=== PATIENT | female | born 1960 | race African-American/Black ===

== ENCOUNTER 2023-02-09 09:37 | Inpatient (IN) | payer BC, MEDICAID ==
[2023-02-02 14:49] LABS: BILIRUBIN,URINE NEGATIVE (Neg); CLARITY,URINE SLIGHTLY CLOUDY (Clear); COLOR,URINE YELLOW (Yellow); GLUCOSE, URINE NEGATIVE (Neg); KETONES,URINE NEGATIVE (Neg); LEUKOCYTE ESTERASE ,URINE NEGATIVE (Neg); NITRITES, URINE NEGATIVE (Neg); OCCULT BLOOD,URINE NEGATIVE (Neg); PROTEIN,URINE NEGATIVE (Neg); UROBILINOGEN,URINE 0.2 E.U/dL (0.2-1.0)
[2023-02-02 14:54] LABS: BASOPHILS % (AUTO) 0.6 % (0-1); EOSINOPHILS # (AUTO) 0.2 X10'3 (0-0.9); EOSINOPHILS % (AUTO) 3.8 % (0-6); LYMPHOCYTES # (AUTO) 1.4 X10'3 (1.1-4.8); LYMPHOCYTES % (AUTO) 30.4 % (21-51); MEAN CORPUSCULAR HEMOGLOBIN 30.8 PG (27.0-31.0); MEAN CORPUSCULAR HGB CONC 33.1 g/dL (33.0-36.5); MEAN CORPUSCULAR VOLUME 93.1 FL (78-98); MEAN PLATELET VOLUME 9.4 FL (7.4-10.4); MONOCYTES # (AUTO) 0.8 X10'3 (0-0.9); MONOCYTES % (AUTO) 16.8 % (2-12); NEUTROPHILS # (AUTO) 2.2 X10'3 (1.8-7.7); NEUTROPHILS % (AUTO) 48.4 % (42-75); PRE OP HEMATOCRIT 40.9 % (35.0-45.0); PRE OP HEMOGLOBIN 13.5 g/dL (12.0-16.0); PRE OP PLATELET COUNT 264 X10'3 (140-440); PRE OP WHITE BLOOD COUNT 4.5 10'3 (4.8-10.8); RED CELL DISTRIBUTION WIDTH 15.1 % (11.5-14.5)
[2023-02-02 14:57] LABS: UA COLLECTION TYPE CLN CATCH MIDSTREAM
[2023-02-02 14:58] LABS: ALBUMIN 3.9 G/DL (3.4-5.0); BLOOD UREA NITROGEN 19 MG/DL (7-18); BUN/CREATININE RATIO 23.2 (10.0-20.0); CALCIUM 8.6 MG/DL (8.5-10.1); CHLORIDE 106 MMOL/L (99-107); CREATININE 0.82 MG/DL (0.40-0.90); MUCUS STRANDS FEW /LPF (Neg); PRE OP ALT 29 U/L (30-65); PRE OP ANION GAP 6 (8-16); PRE OP AST 23 U/L (10-37); PRE OP GLUCOSE 99 MG/DL (70-104); PRE OP SODIUM 140 MMOL/L (135-145); SQUAMOUS EPITHELIAL CELL,UR MANY /LPF (FEW); TOTAL CARBON DIOXIDE 27.7 MMOL/L (24-32); eGFR 85 ML/MIN
[2023-02-02 14:59] LABS: HYALINE CASTS 0-3 /LPF (NEGATIVE)
[2023-02-02 15:00] LABS: BACTERIA,URINE FEW /HPF (Neg); RBC,URINE 0-2 /HPF (0-2); TRANSITIONAL EPI CELLS,URINE FEW /HPF
[2023-02-02 15:13] LABS: TOTAL CELLS COUNTED 100
[2023-02-02 15:14] LABS: PLATELET ESTIMATE NORMAL
[2023-02-02 15:16] LABS: ALKALINE PHOSPHATASE 99 IU/L (46-116); PRE OP BILIRUB, TOTAL 0.3 MG/DL (0.0-1.0); TOTAL PROTEIN 7.9 G/DL (6.4-8.2)
[~2023-02-09] VITALS: Ht 167.6 cm; Wt 99.8 kg
[2023-02-09] VITALS (23 sets, daily range): BP systolic 106–164; BP diastolic 53–90; PULSE 76–100; RESP 8–20; TEMP 97.3–98.4; O2SAT 16–100
[~2023-02-09 09:37] MED LIST: CELE-193 PO; ERGO500041 PO; PHEN37.58 PO; ceFOXitin 2GM-NS 100mL ADDvant 100 ML IV ONE; famotidine 20mg tablet PO ONE; ringers solution, lacted 1,000 ML IV SCH
[2023-02-09] MEDS ORDERED: LIDOcaine 2% (20mg/ml) 5ml vial ONE (11:52)
[2023-02-09] MEDS ORDERED: propofol inj 20 ML IV ONE (11:52)
[2023-02-09] MEDS ORDERED: rocuronium 10mg/ml inj IV ONE ×3 (11:53→13:51)
[2023-02-09] MEDS ORDERED: ondansetron/PF 4mg/2ml inj ONE (11:53)
[2023-02-09] MEDS ORDERED: fentaNYL /PF 50mcg/ml 5ml ampule ONE (11:54)
[2023-02-09] MEDS ORDERED: midazolam 1 mg/ML 2ml injection ONE (11:54)
[2023-02-09] MEDS ORDERED: hydrALAZINE 20mg/ml inj. IV PRN (12:00)
[2023-02-09] MEDS ORDERED: ringers solution, lacted 1,000 ML IV SCH (12:00)
[2023-02-09] MEDS ORDERED: naloxone 0.4 mg/ml inj IV PRN (12:00)
[2023-02-09] MEDS ORDERED: fentaNYL/PF 50MCG/1 ML 2ML syringe IV PRN ×2 (12:00)
[2023-02-09] MEDS ORDERED: labetalol 20mg/4ml (5mg/ml) syringe IV PRN (12:00)
[2023-02-09] MEDS ORDERED: ondansetron/PF 4mg/2ml inj IV PRN (12:00)
[2023-02-09] MEDS ORDERED: morphine 2 MG/ML inj. syringe IV PRN (12:00)
[2023-02-09] MEDS ORDERED: sevoflurane 250ml liquid IH ONE (12:10)
[2023-02-09] MEDS ORDERED: oxyCODONE/APAP 5-325mg tablet PO PRN (12:10)
[2023-02-09] MEDS ORDERED: dexamethasone sod phosphate 10mg/ml inj ONE (12:10)
[2023-02-09] MEDS ORDERED: acetaminophen 1,000mg/100ml IV 100 ML IV ONE (12:27)
[2023-02-09] MEDS: HYDROmorph/NS 0.2 mg/ml PCA 100 ML IV SCH ×7 (13:00→23:00)
[2023-02-09] MEDS ORDERED: labetalol 20mg/4ml (5mg/ml) syringe IV ONE (13:21)
[2023-02-09] MEDS ORDERED: hydrALAZINE 20mg/ml inj. IV ONE (13:22)
[2023-02-09] MEDS ORDERED: sugammadex 200mg/2ml injection IV ONE (13:31)
[2023-02-09] MEDS ORDERED: fentaNYL/PF 50MCG/1 ML 2ML syringe ONE (14:37)
[2023-02-09] MEDS ORDERED: BUPIVAcaine/PF 2.5mg/ml (0.25%) 10ml vial ONE (14:39)
[2023-02-09] MEDS: morphine 4 MG/ML inj SYRINge IV PRN ×2 (15:00→15:16)
[2023-02-09] MEDS ORDERED: BUPIVAcaine/PF 2.5mg/ml (0.25%) 10ml vial IJ ONE (15:02)
[2023-02-09] MEDS: normal saline 1000ml 1,000 ML IV SCH (17:31)
[2023-02-09] MEDS ORDERED: PCA WASTE DOCUMENTATION 1 MG ML MC SCH (19:00)
[2023-02-09] MEDS ORDERED: PCA WASTE DOCUMENTATION 1 MG ML MC PRN ×2 (19:06→19:07)
[2023-02-09] MEDS: docusate sod 100mg capsule PO SCH (20:00)
[2023-02-10] VITALS (8 sets, daily range): BP systolic 124–148; BP diastolic 68–82; PULSE 86–98; RESP 15–18; TEMP 97.3–97.9; O2SAT 95–98
[2023-02-10] MEDS: HYDROmorph/NS 0.2 mg/ml PCA 100 ML IV SCH ×12 (01:00→23:00)
[2023-02-10] MEDS: docusate sod 100mg capsule PO SCH (07:48)
[2023-02-10] MEDS ORDERED: PHENTERMINE 37.5 MG PO SCH (08:00)
[2023-02-10] MEDS ORDERED: celeCOXIB 100mg capsule PO SCH (08:00)
[2023-02-10] MEDS ORDERED: ergocalciferol (vit D2) capsule 50,000 UNITS (1,250mcg) CAPSULE PO SCH (08:00)
[2023-02-11] VITALS (7 sets, daily range): BP systolic 139–156; BP diastolic 73–99; PULSE 93–100; RESP 12–18; TEMP 97.4–98.8; O2SAT 96–99
[2023-02-11] MEDS: HYDROmorph/NS 0.2 mg/ml PCA 100 ML IV SCH ×12 (01:00→23:00)
[2023-02-11] MEDS: PHENTERMINE 37.5 MG PO SCH ×2 (09:45→22:36)
[2023-02-11 10:30] LABS: BASOPHILS % (AUTO) 0.3 % (0-1); EOSINOPHILS # (AUTO) 0.1 X10'3 (0-0.9); EOSINOPHILS % (AUTO) 1.3 % (0-6); HEMATOCRIT 35.7 % (35.0-45.0); HEMOGLOBIN 11.8 g/dl (12.0-16.0); LYMPHOCYTES # (AUTO) 0.8 X10'3 (1.1-4.8); LYMPHOCYTES % (AUTO) 10.9 % (21-51); MEAN CORPUSCULAR HEMOGLOBIN 30.7 PG (27.0-31.0); MEAN PLATELET VOLUME 9.3 FL (7.4-10.4); MONOCYTES # (AUTO) 0.7 X10'3 (0-0.9); MONOCYTES % (AUTO) 8.7 % (2-12); NEUTROPHILS % (AUTO) 78.8 % (42-75); PLATELET COUNT 206 X10'3 (140-440); RED BLOOD COUNT 3.84 X10'6 (4.20-5.60); RED CELL DISTRIBUTION WIDTH 15.1 % (11.5-14.5); WHITE BLOOD COUNT 7.6 X10'3 (4.5-11.0)
[2023-02-11 10:50] LABS: ALANINE AMINOTRANSFERASE 24 U/L (12-78); ALBUMIN/GLOBULIN RATIO 0.8 (1.1-1.5); ALKALINE PHOSPHATASE 66 IU/L (46-116); ANION GAP 8 (8-16); ASPARTATE AMINO TRANSFERASE 19 U/L (10-37); BILIRUBIN,TOTAL 0.6 MG/DL (0.1-1.0); BLOOD UREA NITROGEN 6 MG/DL (7-18); BUN/CREATININE RATIO 10.5 (10.0-20.0); CALCIUM 8.8 MG/DL (8.5-10.1); CHLORIDE 101 MMOL/L (99-107); CREATININE 0.57 MG/DL (0.40-0.90); GLUCOSE 108 MG/DL (70-104); POTASSIUM 3.2 MMOL/L (3.5-5.1); SODIUM 137 MMOL/L (135-145); TOTAL CARBON DIOXIDE 28.2 MMOL/L (24-32); eCRCL 93 ML/MIN; eGFR > 90 ML/MIN
[2023-02-11] MEDS: normal saline 1000ml 1,000 ML IV SCH ×2 (12:00→15:40)
[2023-02-11] MEDS ORDERED: potassium Cl 20 mEq SR tablet PO PRN (19:25)
[2023-02-11] MEDS ORDERED: potassium Cl 40MEQ/1/2NS 520ml 520 ML IV PRN ×2 (19:25)
[2023-02-11] MEDS: K and/or MAG REPLACEMENT MC SCH (21:30)
[2023-02-12] MEDS: HYDROmorph/NS 0.2 mg/ml PCA 100 ML IV SCH ×4 (01:00→07:00)
[2023-02-12 06:00] VITALS: BP 178/93; PULSE 96; RESP 16; TEMP 98.2; O2SAT 98
[2023-02-12] MEDS: K and/or MAG REPLACEMENT MC SCH ×2 (08:00→20:00)
[2023-02-12] MEDS: PHENTERMINE 37.5 MG PO SCH (09:39)
[2023-02-12 10:00] VITALS: BP 167/98; PULSE 95; RESP 18; TEMP 98.6; O2SAT 99
[2023-02-12 11:23] LABS: BASOPHILS % (AUTO) 0.3 % (0-1); EOSINOPHILS # (AUTO) 0.3 X10'3 (0-0.9); EOSINOPHILS % (AUTO) 3.9 % (0-6); HEMATOCRIT 36.3 % (35.0-45.0); LYMPHOCYTES # (AUTO) 0.8 X10'3 (1.1-4.8); LYMPHOCYTES % (AUTO) 13.1 % (21-51); MEAN CORPUSCULAR HEMOGLOBIN 30.7 PG (27.0-31.0); MEAN CORPUSCULAR HGB CONC 33.1 g/dL (33.0-36.5); MEAN PLATELET VOLUME 9.4 FL (7.4-10.4); MONOCYTES # (AUTO) 0.6 X10'3 (0-0.9); MONOCYTES % (AUTO) 9.5 % (2-12); NEUTROPHILS # (AUTO) 4.7 X10'3 (1.8-7.7); NEUTROPHILS % (AUTO) 73.2 % (42-75); PLATELET COUNT 201 X10'3 (140-440); RED BLOOD COUNT 3.91 X10'6 (4.20-5.60); RED CELL DISTRIBUTION WIDTH 14.7 % (11.5-14.5); WHITE BLOOD COUNT 6.4 X10'3 (4.5-11.0)
[2023-02-12 11:42] LABS: ALANINE AMINOTRANSFERASE 22 U/L (12-78); ALBUMIN 2.8 G/DL (3.4-5.0); ALBUMIN/GLOBULIN RATIO 0.7 (1.1-1.5); ALKALINE PHOSPHATASE 73 IU/L (46-116); ANION GAP 10 (8-16); ASPARTATE AMINO TRANSFERASE 19 U/L (10-37); BILIRUBIN,TOTAL 0.7 MG/DL (0.1-1.0); BLOOD UREA NITROGEN 3 MG/DL (7-18); BUN/CREATININE RATIO 5.8 (10.0-20.0); CALCIUM 8.9 MG/DL (8.5-10.1); CHLORIDE 101 MMOL/L (99-107); CREATININE 0.52 MG/DL (0.40-0.90); GLUCOSE 86 MG/DL (70-104); POTASSIUM 3.2 MMOL/L (3.5-5.1); SODIUM 138 MMOL/L (135-145); TOTAL CARBON DIOXIDE 27.3 MMOL/L (24-32); eCRCL 102 ML/MIN; eGFR > 90 ML/MIN
[2023-02-12] MEDS: ondansetron/PF 4mg/2ml inj IV PRN (14:08)
[2023-02-12] MEDS: oxyCODONE/APAP 10/325mg tablet PO PRN ×2 (15:19→20:55)
[2023-02-12 16:45] LABS: HEMATOCRIT 42.2 % (35.0-45.0); HEMOGLOBIN 13.8 g/dl (12.0-16.0); MEAN CORPUSCULAR HEMOGLOBIN 30.8 PG (27.0-31.0); MEAN CORPUSCULAR HGB CONC 32.8 g/dL (33.0-36.5); MEAN CORPUSCULAR VOLUME 94.1 FL (78-98); MEAN PLATELET VOLUME 9.2 FL (7.4-10.4); PLATELET COUNT 234 X10'3 (140-440); RED BLOOD COUNT 4.49 X10'6 (4.20-5.60); WHITE BLOOD COUNT 7.4 X10'3 (4.5-11.0)
[2023-02-12] MEDS: potassium Cl 20 mEq SR tablet PO PRN ×2 (17:54→22:02)
[2023-02-12] MEDS: lisinopril 10 MG tablet PO SCH (17:55)
[2023-02-12 18:00] VITALS: BP 153/93; PULSE 100; RESP 18; TEMP 98.4; O2SAT 94
[2023-02-12 20:00] VITALS: RESP 18; O2SAT 96
[2023-02-12 22:00] VITALS: BP 148/76; PULSE 95; RESP 16; TEMP 99; O2SAT 98
[2023-02-13] VITALS (7 sets, daily range): BP systolic 116–183; BP diastolic 66–109; PULSE 82–95; RESP 16–18; TEMP 97.3–99.4; O2SAT 99–100
[2023-02-13] MEDS: PHENTERMINE 37.5 MG PO SCH ×2 (07:00→14:00)
[2023-02-13] MEDS: K and/or MAG REPLACEMENT MC SCH ×2 (08:00→20:00)
[2023-02-13] MEDS: lisinopril 10 MG tablet PO SCH (08:33)
[2023-02-13] MEDS: oxyCODONE/APAP 10/325mg tablet PO PRN ×3 (10:30→20:46)
[2023-02-13] MEDS: potassium Cl 20 mEq SR tablet PO PRN ×3 (11:59→21:50)
[2023-02-13] MEDS: normal saline 1000ml 1,000 ML IV SCH (12:00)
[2023-02-13] MEDS ORDERED: lisinopril 20mg tablet PO ONE (20:25)
[2023-02-13] MEDS: ondansetron/PF 4mg/2ml inj IV PRN (23:41)
[2023-02-14] MEDS ORDERED: lisinopril 20mg tablet PO ONE (00:35)
[2023-02-14] MEDS ORDERED: epiNEPHrine 1 mg/ml inj IM STA (04:40)
[2023-02-14] MEDS ORDERED: methylPREDNISolone sod succ 125mg/2ml vial IV ONE (04:40)
[2023-02-14] MEDS ORDERED: diphenhydrAMINE 50 mg/ml inj IM ONE (04:40)
[2023-02-14] MEDS ORDERED: famotidine/PF 10 mg/ml inj IV ONE (04:40)
[2023-02-14] MEDS: oxyCODONE/APAP 10/325mg tablet PO PRN ×4 (06:03→20:30)
[2023-02-14 07:09] VITALS: BP 161/90; PULSE 87; RESP 16; TEMP 98.7; O2SAT 99
[2023-02-14 08:00] VITALS: RESP 16; O2SAT 97
[2023-02-14] MEDS: HYDROchlorothiazide 25mg tablet PO SCH (13:01)
[2023-02-14] MEDS: PHENTERMINE 37.5 MG PO SCH ×2 (14:00→19:30)
[2023-02-14 18:30] VITALS: RESP 16; O2SAT 98
[2023-02-14 19:00] VITALS: BP 160/81; PULSE 93; RESP 16; TEMP 98.1; O2SAT 98
[2023-02-14 19:27] VITALS: BP 185/100; PULSE 103; RESP 16; TEMP 98.4; O2SAT 97
[2023-02-14] MEDS: K and/or MAG REPLACEMENT MC SCH ×2 (19:29→19:32)
[2023-02-14] MEDS: metoprolol tartrate 12.5mg (1/2 tablet) PO SCH (19:35)
[2023-02-14] MEDS: ondansetron/PF 4mg/2ml inj IV PRN (19:44)
[2023-02-14] MEDS: diatr meglu/diatrizoate 30ml oral sol.-(3 dose) bottle PO SCH (21:08)
[2023-02-14 22:00] VITALS: BP 193/105; PULSE 102; RESP 16; TEMP 98.8; O2SAT 100
[2023-02-14] MEDS ORDERED: morphine 2 MG/ML inj. syringe IV PRN ×3 (22:55→23:25)
[2023-02-14] MEDS ORDERED: morphine 4 MG/ML inj SYRINge IV PRN (22:55)
[2023-02-14] MEDS ORDERED: hydrALAZINE 20mg/ml inj. IV PRN (23:45)
[2023-02-15] VITALS (22 sets, daily range): BP systolic 128–191; BP diastolic 71–106; PULSE 72–103; RESP 8–23; TEMP 97.1–97.7; O2SAT 98–100
[2023-02-15] MEDS: morphine 4 MG/ML inj SYRINge IV PRN ×5 (03:22→20:49)
[2023-02-15] MEDS: PHENTERMINE 37.5 MG PO SCH ×2 (07:00→14:00)
[2023-02-15] MEDS: diatr meglu/diatrizoate 30ml oral sol.-(3 dose) bottle PO SCH ×2 (07:05→10:17)
[2023-02-15] MEDS: metoprolol tartrate 12.5mg (1/2 tablet) PO SCH ×2 (07:06→22:21)
[2023-02-15] MEDS: HYDROchlorothiazide 25mg tablet PO SCH (07:06)
[2023-02-15] MEDS: K and/or MAG REPLACEMENT MC SCH ×2 (07:09→20:00)
[2023-02-15] MEDS: ondansetron/PF 4mg/2ml inj IV PRN (08:55)
[2023-02-15] MEDS ORDERED: Chloraseptic (Phenol) Spray 177ml MM PRN (14:05)
[2023-02-15] MEDS ORDERED: BUPIVAcaine 2.5mg/ml inj 50ml vial (contains preservative) ONE (15:34)
[2023-02-15] MEDS ORDERED: ondansetron/PF 4mg/2ml inj IV PRN (16:45)
[2023-02-15] MEDS ORDERED: ringers solution, lacted 1,000 ML IV SCH (16:45)
[2023-02-15] MEDS ORDERED: acetaminophen 1,000mg/100ml IV 100 ML IV ONE (16:45)
[2023-02-15] MEDS ORDERED: proCHLORperazine 10 MG/2 ml inj IV PRN (16:45)
[2023-02-15] MEDS ORDERED: meperidine/PF 25mg/ml syringe IV PRN ×2 (16:45)
[2023-02-15] MEDS ORDERED: labetalol 20mg/4ml (5mg/ml) syringe IV PRN (16:45)
[2023-02-15] MEDS ORDERED: morphine 2 MG/ML inj. syringe IV PRN (16:45)
[2023-02-15] MEDS ORDERED: fentaNYL /PF 50mcg/ml 5ml ampule ONE (18:05)
[2023-02-15] MEDS ORDERED: midazolam 1 mg/ML 2ml injection ONE (18:05)
[2023-02-15] MEDS ORDERED: BUPIVAcaine 2.5mg/ml inj 50ml vial (contains preservative) SQ ONE (19:40)
[2023-02-15] MEDS ORDERED: ceFOXitin 1000 MG inj ONE ×2 (19:41)
[2023-02-15] MEDS ORDERED: ondansetron/PF 4mg/2ml inj ONE (19:41)
[2023-02-15] MEDS ORDERED: dexamethasone sod phosphate 4mg/ml inj. ONE (19:41)
[2023-02-15] MEDS ORDERED: LIDOcaine 2% (20mg/ml) 5ml vial ONE (19:41)
[2023-02-15] MEDS ORDERED: propofol inj 20 ML IV ONE (19:41)
[2023-02-15] MEDS ORDERED: rocuronium 10mg/ml inj IV ONE (19:41)
[2023-02-15] MEDS ORDERED: sugammadex 200mg/2ml injection IV ONE (19:45)
[2023-02-15] MEDS: meperidine/PF 25mg/ml syringe IV PRN ×2 (19:58→20:12)
[2023-02-15] MEDS: hydrALAZINE 20mg/ml inj. IV PRN ×2 (21:22→21:39)
[2023-02-15] MEDS: oxyCODONE/APAP 10/325mg tablet PO PRN (22:22)
[2023-02-16] VITALS (7 sets, daily range): BP systolic 109–159; BP diastolic 74–96; PULSE 91–109; RESP 15–18; TEMP 96.6–98.4; O2SAT 95–99
[2023-02-16] MEDS: oxyCODONE/APAP 10/325mg tablet PO PRN ×5 (02:25→20:42)
[2023-02-16 05:18] LABS: D-DIMER 28.42 MG/L FEU (0-0.50)
[2023-02-16] MEDS: metoprolol tartrate 12.5mg (1/2 tablet) PO SCH ×2 (06:51→20:42)
[2023-02-16] MEDS: HYDROchlorothiazide 25mg tablet PO SCH (06:51)
[2023-02-16] MEDS: PHENTERMINE 37.5 MG PO SCH ×2 (07:00→13:51)
[2023-02-16] MEDS: K and/or MAG REPLACEMENT MC SCH ×2 (07:54→20:00)
[2023-02-16] MEDS: morphine 4 MG/ML inj SYRINge IV PRN ×3 (09:03→17:45)
[2023-02-16] MEDS ORDERED: iohexol 350MG/ML 100ml bottle IV ONE (12:51)
[2023-02-17] MEDS: oxyCODONE/APAP 10/325mg tablet PO PRN ×4 (00:48→18:27)
[2023-02-17 06:00] VITALS: BP 146/86; PULSE 97; RESP 16; TEMP 98; O2SAT 98
[2023-02-17 06:41] LABS: BASOPHILS % (AUTO) 0.2 % (0-1); EOSINOPHILS # (AUTO) 0.2 X10'3 (0-0.9); EOSINOPHILS % (AUTO) 2.6 % (0-6); HEMATOCRIT 36.3 % (35.0-45.0); HEMOGLOBIN 12.2 g/dl (12.0-16.0); LYMPHOCYTES # (AUTO) 1.3 X10'3 (1.1-4.8); LYMPHOCYTES % (AUTO) 17.9 % (21-51); MEAN CORPUSCULAR HEMOGLOBIN 30.9 PG (27.0-31.0); MEAN CORPUSCULAR HGB CONC 33.6 g/dL (33.0-36.5); MEAN PLATELET VOLUME 8.7 FL (7.4-10.4); MONOCYTES # (AUTO) 1.1 X10'3 (0-0.9); MONOCYTES % (AUTO) 15.4 % (2-12); NEUTROPHILS # (AUTO) 4.5 X10'3 (1.8-7.7); NEUTROPHILS % (AUTO) 63.9 % (42-75); PLATELET COUNT 255 X10'3 (140-440); RED BLOOD COUNT 3.94 X10'6 (4.20-5.60); RED CELL DISTRIBUTION WIDTH 14.1 % (11.5-14.5)
[2023-02-17] MEDS: PHENTERMINE 37.5 MG PO SCH ×2 (07:00→14:00)
[2023-02-17] MEDS: ondansetron/PF 4mg/2ml inj IV PRN ×2 (07:22→16:02)
[2023-02-17] MEDS: morphine 4 MG/ML inj SYRINge IV PRN ×3 (07:25→15:56)
[2023-02-17 07:31] LABS: ALBUMIN 2.4 G/DL (3.4-5.0); ANION GAP 10 (8-16); BLOOD UREA NITROGEN 11 MG/DL (7-18); BUN/CREATININE RATIO 15.5 (10.0-20.0); CALCIUM 8.3 MG/DL (8.5-10.1); CHLORIDE 94 MMOL/L (99-107); CREATININE 0.71 MG/DL (0.40-0.90); GLUCOSE 87 MG/DL (70-104); PRO BRAIN NATRIURETIC PEPTIDE < 30 PG/ML (0-125); SODIUM 132 MMOL/L (135-145); TOTAL CARBON DIOXIDE 28.2 MMOL/L (24-32); eCRCL 75 ML/MIN; eGFR > 90 ML/MIN
[2023-02-17 07:33] LABS: POTASSIUM 2.7 MMOL/L (3.5-5.1)
[2023-02-17] MEDS ORDERED: potassium Cl 40MEQ/1/2NS 520ml 520 ML IV PRN ×2 (07:35)
[2023-02-17] MEDS: K and/or MAG REPLACEMENT MC SCH ×2 (08:00→20:00)
[2023-02-17] MEDS: potassium Cl 20 mEq SR tablet PO PRN ×3 (08:14→16:07)
[2023-02-17] MEDS: HYDROchlorothiazide 25mg tablet PO SCH (08:15)
[2023-02-17] MEDS: metoprolol tartrate 12.5mg (1/2 tablet) PO SCH ×2 (08:15→20:50)
[2023-02-17 10:00] VITALS: BP 160/83; PULSE 89; RESP 18; TEMP 97.3; O2SAT 100
[2023-02-17 11:29] LABS: PLATELET ESTIMATE NORMAL; TOTAL CELLS COUNTED 100
[2023-02-17 18:00] VITALS: BP 120/69; PULSE 110; RESP 15; TEMP 97.5; O2SAT 97
[2023-02-17 20:20] VITALS: RESP 16; O2SAT 98
[2023-02-17 22:00] VITALS: BP 129/88; PULSE 121; RESP 15; TEMP 97.7; O2SAT 98
[2023-02-18] VITALS (7 sets, daily range): BP systolic 120–145; BP diastolic 71–89; PULSE 90–117; RESP 15–20; TEMP 97.6–98; O2SAT 92–98
[2023-02-18 06:53] LABS: BASOPHILS % (AUTO) 0.3 % (0-1); EOSINOPHILS # (AUTO) 0.2 X10'3 (0-0.9); EOSINOPHILS % (AUTO) 1.7 % (0-6); HEMATOCRIT 35.3 % (35.0-45.0); HEMOGLOBIN 11.9 g/dl (12.0-16.0); LYMPHOCYTES # (AUTO) 0.6 X10'3 (1.1-4.8); LYMPHOCYTES % (AUTO) 5.5 % (21-51); MEAN CORPUSCULAR HEMOGLOBIN 30.9 PG (27.0-31.0); MEAN CORPUSCULAR HGB CONC 33.8 g/dL (33.0-36.5); MEAN CORPUSCULAR VOLUME 91.5 FL (78-98); MEAN PLATELET VOLUME 8.8 FL (7.4-10.4); MONOCYTES % (AUTO) 8.4 % (2-12); NEUTROPHILS # (AUTO) 9.9 X10'3 (1.8-7.7); NEUTROPHILS % (AUTO) 84.1 % (42-75); PLATELET COUNT 253 X10'3 (140-440); RED BLOOD COUNT 3.85 X10'6 (4.20-5.60); RED CELL DISTRIBUTION WIDTH 14.5 % (11.5-14.5); WHITE BLOOD COUNT 11.8 X10'3 (4.5-11.0)
[2023-02-18] MEDS: PHENTERMINE 37.5 MG PO SCH ×2 (07:00→07:44)
[2023-02-18 07:09] LABS: ALBUMIN 2.7 G/DL (3.4-5.0); ANION GAP 10 (8-16); BLOOD UREA NITROGEN 6 MG/DL (7-18); BUN/CREATININE RATIO 9.4 (10.0-20.0); CALCIUM 8.7 MG/DL (8.5-10.1); CHLORIDE 94 MMOL/L (99-107); CREATININE 0.64 MG/DL (0.40-0.90); GLUCOSE 100 MG/DL (70-104); POTASSIUM 3.7 MMOL/L (3.5-5.1); SODIUM 131 MMOL/L (135-145); TOTAL CARBON DIOXIDE 27.1 MMOL/L (24-32); eCRCL 83 ML/MIN; eGFR > 90 ML/MIN
[2023-02-18] MEDS: metoprolol tartrate 12.5mg (1/2 tablet) PO SCH ×2 (07:22→21:55)
[2023-02-18] MEDS: HYDROchlorothiazide 25mg tablet PO SCH ×2 (07:22→07:45)
[2023-02-18] MEDS: oxyCODONE/APAP 10/325mg tablet PO PRN ×3 (07:48→16:22)
[2023-02-18] MEDS: K and/or MAG REPLACEMENT MC SCH ×2 (08:00→19:35)
[2023-02-18] MEDS ORDERED: metoclopramide 5 mg/ml inj IV SCH (14:00)
[2023-02-18] MEDS ORDERED: metoprolol tartrate 25mg tablet PO ONE (19:25)
[2023-02-18] MEDS: lactose-reduced food (Ensure Enlive) - 237ml bottle PO SCH (19:43)
[2023-02-18] MEDS: magnesium hydroxide 30ml (MOM) UD suspension PO SCH (19:43)
[2023-02-19 06:00] VITALS: BP 126/76; PULSE 97; RESP 20; TEMP 98.4; O2SAT 94
[2023-02-19] MEDS: PHENTERMINE 37.5 MG PO SCH ×2 (07:00→14:00)
[2023-02-19] MEDS: lactose-reduced food (Ensure Enlive) - 237ml bottle PO SCH ×3 (07:33→18:03)
[2023-02-19] MEDS: K and/or MAG REPLACEMENT MC SCH ×2 (07:33→20:00)
[2023-02-19] MEDS: HYDROchlorothiazide 25mg tablet PO SCH (07:34)
[2023-02-19] MEDS: magnesium hydroxide 30ml (MOM) UD suspension PO SCH ×2 (07:34→20:27)
[2023-02-19] MEDS: metoprolol tartrate 12.5mg (1/2 tablet) PO SCH ×2 (07:34→20:27)
[2023-02-19] MEDS: oxyCODONE/APAP 10/325mg tablet PO PRN ×3 (07:39→20:27)
[2023-02-19 07:40] VITALS: RESP 20; O2SAT 98
[2023-02-19 10:00] VITALS: BP 135/78; PULSE 104; RESP 16; TEMP 98.4; O2SAT 98
[2023-02-19] MEDS ORDERED: LOP12.5T PO (13:32)
[2023-02-19] MEDS ORDERED: HYDR25TA4 PO ×2 (13:32)
[2023-02-19 15:06] LABS: BASOPHILS % (AUTO) 0.2 % (0-1); EOSINOPHILS # (AUTO) 0.1 X10'3 (0-0.9); EOSINOPHILS % (AUTO) 0.6 % (0-6); HEMATOCRIT 39.4 % (35.0-45.0); LYMPHOCYTES % (AUTO) 4.6 % (21-51); MEAN CORPUSCULAR HEMOGLOBIN 30.2 PG (27.0-31.0); MEAN CORPUSCULAR HGB CONC 33.1 g/dL (33.0-36.5); MEAN CORPUSCULAR VOLUME 91.3 FL (78-98); MEAN PLATELET VOLUME 8.7 FL (7.4-10.4); MONOCYTES # (AUTO) 1.4 X10'3 (0-0.9); MONOCYTES % (AUTO) 6.1 % (2-12); NEUTROPHILS # (AUTO) 19.8 X10'3 (1.8-7.7); NEUTROPHILS % (AUTO) 88.5 % (42-75); PLATELET COUNT 247 X10'3 (140-440); RED BLOOD COUNT 4.32 X10'6 (4.20-5.60); RED CELL DISTRIBUTION WIDTH 14.3 % (11.5-14.5); WHITE BLOOD COUNT 22.3 X10'3 (4.5-11.0)
[2023-02-19 15:10] LABS: ALBUMIN 2.7 G/DL (3.4-5.0); ANION GAP 10 (8-16); BLOOD UREA NITROGEN 15 MG/DL (7-18); CALCIUM 9.5 MG/DL (8.5-10.1); CHLORIDE 92 MMOL/L (99-107); GLUCOSE 123 MG/DL (70-104); POTASSIUM 3.3 MMOL/L (3.5-5.1); SODIUM 130 MMOL/L (135-145); TOTAL CARBON DIOXIDE 28.1 MMOL/L (24-32); eCRCL 53 ML/MIN; eGFR 68 ML/MIN
[2023-02-19] MEDS ORDERED: HYDR-3965 PO (15:19)
[2023-02-19 16:59] LABS: ALANINE AMINOTRANSFERASE 48 U/L (12-78); ALBUMIN 2.9 G/DL (3.4-5.0); ALBUMIN/GLOBULIN RATIO 0.6 (1.1-1.5); ALKALINE PHOSPHATASE 133 IU/L (46-116); ANION GAP 8 (8-16); ASPARTATE AMINO TRANSFERASE 36 U/L (10-37); BILIRUBIN,TOTAL 0.7 MG/DL (0.1-1.0); BLOOD UREA NITROGEN 15 MG/DL (7-18); CALCIUM 9.9 MG/DL (8.5-10.1); CHLORIDE 92 MMOL/L (99-107); CREATININE 0.94 MG/DL (0.40-0.90); GLUCOSE 115 MG/DL (70-104); POTASSIUM 3.3 MMOL/L (3.5-5.1); SODIUM 131 MMOL/L (135-145); TOTAL CARBON DIOXIDE 30.6 MMOL/L (24-32); TOTAL PROTEIN 7.7 G/DL (6.4-8.2); eCRCL 57 ML/MIN; eGFR 73 ML/MIN
[2023-02-19 17:19] LABS: BASOPHILS % (AUTO) 0.1 % (0-1); EOSINOPHILS # (AUTO) 0.2 X10'3 (0-0.9); EOSINOPHILS % (AUTO) 0.9 % (0-6); HEMATOCRIT 37.1 % (35.0-45.0); HEMOGLOBIN 12.4 g/dl (12.0-16.0); LYMPHOCYTES # (AUTO) 0.7 X10'3 (1.1-4.8); LYMPHOCYTES % (AUTO) 3.4 % (21-51); MEAN CORPUSCULAR HEMOGLOBIN 30.6 PG (27.0-31.0); MEAN CORPUSCULAR HGB CONC 33.5 g/dL (33.0-36.5); MEAN CORPUSCULAR VOLUME 91.5 FL (78-98); MEAN PLATELET VOLUME 8.4 FL (7.4-10.4); MONOCYTES # (AUTO) 0.8 X10'3 (0-0.9); MONOCYTES % (AUTO) 4.1 % (2-12); NEUTROPHILS % (AUTO) 91.5 % (42-75); PLATELET COUNT 236 X10'3 (140-440); RED BLOOD COUNT 4.05 X10'6 (4.20-5.60); RED CELL DISTRIBUTION WIDTH 14.4 % (11.5-14.5); WHITE BLOOD COUNT 19.6 X10'3 (4.5-11.0)
[2023-02-19] MEDS: normal saline 1000ml 1,000 ML IV SCH (17:58)
[2023-02-19 18:00] VITALS: BP 116/72; PULSE 112; RESP 16; TEMP 98.6; O2SAT 96
[2023-02-19] MEDS: potassium Cl 20 mEq SR tablet PO PRN ×2 (18:37→22:29)
[2023-02-19] MEDS: morphine 4 MG/ML inj SYRINge IV PRN (18:37)
[2023-02-19] MEDS: piperacillin/tazo 3.375gm/50ml 50 ML IV SCH (18:37)
[2023-02-19 19:45] LABS: BILIRUBIN,URINE NEGATIVE (Neg); CLARITY,URINE CLEAR (Clear); COLOR,URINE YELLOW (Yellow); GLUCOSE, URINE NEGATIVE (Neg); KETONES,URINE TRACE mg/dl (Neg); LEUKOCYTE ESTERASE ,URINE SMALL (Neg); NITRITES, URINE NEGATIVE (Neg); OCCULT BLOOD,URINE NEGATIVE (Neg); PROTEIN,URINE NEGATIVE (Neg); UA COLLECTION TYPE NON-SPECIFIED; UROBILINOGEN,URINE 0.2 E.U/dL (0.2-1.0)
[2023-02-19 19:52] LABS: BACTERIA,URINE FEW /HPF (Neg); MUCUS STRANDS NONE SEEN /LPF (Neg); RBC,URINE NONE SEEN /HPF (0-2); SQUAMOUS EPITHELIAL CELL,UR FEW /LPF (FEW)
[2023-02-19 20:00] VITALS: RESP 16; O2SAT 96
[2023-02-19] MEDS: diatr meglu/diatrizoate 30ml oral sol.-(3 dose) bottle PO SCH (21:09)
[2023-02-19 22:00] VITALS: BP 117/71; PULSE 88; RESP 17; TEMP 98.4; O2SAT 96
[2023-02-20] MEDS: piperacillin/tazo 3.375gm/50ml 50 ML IV SCH ×2 (00:13→08:06)
[2023-02-20] MEDS: oxyCODONE/APAP 10/325mg tablet PO PRN ×4 (02:48→21:25)
[2023-02-20] MEDS: potassium Cl 20 mEq SR tablet PO PRN (02:49)
[2023-02-20] MEDS: normal saline 1000ml 1,000 ML IV SCH ×3 (03:50→14:45)
[2023-02-20 06:33] LABS: BASOPHILS % (AUTO) 0.2 % (0-1); EOSINOPHILS # (AUTO) 0.3 X10'3 (0-0.9); EOSINOPHILS % (AUTO) 1.6 % (0-6); HEMATOCRIT 33.9 % (35.0-45.0); HEMOGLOBIN 11.4 g/dl (12.0-16.0); LYMPHOCYTES # (AUTO) 0.7 X10'3 (1.1-4.8); LYMPHOCYTES % (AUTO) 4.3 % (21-51); MEAN CORPUSCULAR HEMOGLOBIN 30.6 PG (27.0-31.0); MEAN CORPUSCULAR HGB CONC 33.5 g/dL (33.0-36.5); MEAN CORPUSCULAR VOLUME 91.5 FL (78-98); MEAN PLATELET VOLUME 9.7 FL (7.4-10.4); MONOCYTES # (AUTO) 1.7 X10'3 (0-0.9); NEUTROPHILS # (AUTO) 14.4 X10'3 (1.8-7.7); NEUTROPHILS % (AUTO) 83.9 % (42-75); PLATELET COUNT 254 X10'3 (140-440); RED BLOOD COUNT 3.71 X10'6 (4.20-5.60); RED CELL DISTRIBUTION WIDTH 14.3 % (11.5-14.5); WHITE BLOOD COUNT 17.2 X10'3 (4.5-11.0)
[2023-02-20 06:38] VITALS: BP 136/81; PULSE 103; RESP 16; TEMP 97.9; O2SAT 100
[2023-02-20 06:53] LABS: ALANINE AMINOTRANSFERASE 41 U/L (12-78); ALBUMIN 2.4 G/DL (3.4-5.0); ALBUMIN/GLOBULIN RATIO 0.6 (1.1-1.5); ALKALINE PHOSPHATASE 114 IU/L (46-116); ANION GAP 9 (8-16); ASPARTATE AMINO TRANSFERASE 33 U/L (10-37); BILIRUBIN,TOTAL 0.5 MG/DL (0.1-1.0); BLOOD UREA NITROGEN 10 MG/DL (7-18); BUN/CREATININE RATIO 11.8 (10.0-20.0); CALCIUM 8.7 MG/DL (8.5-10.1); CHLORIDE 94 MMOL/L (99-107); CREATININE 0.85 MG/DL (0.40-0.90); GLUCOSE 120 MG/DL (70-104); MAGNESIUM 2.3 MG/DL (1.5-2.4); PHOSPHORUS 2.8 MG/DL (2.3-4.5); POTASSIUM 4.1 MMOL/L (3.5-5.1); SODIUM 132 MMOL/L (135-145); TOTAL PROTEIN 6.7 G/DL (6.4-8.2); eCRCL 63 ML/MIN; eGFR 81 ML/MIN
[2023-02-20 07:00] VITALS: RESP 16; O2SAT 100
[2023-02-20] MEDS: PHENTERMINE 37.5 MG PO SCH ×2 (07:00→14:00)
[2023-02-20] MEDS: metoprolol tartrate 12.5mg (1/2 tablet) PO SCH ×2 (07:51→20:39)
[2023-02-20] MEDS: magnesium hydroxide 30ml (MOM) UD suspension PO SCH ×2 (07:51→18:30)
[2023-02-20] MEDS: HYDROchlorothiazide 25mg tablet PO SCH (07:51)
[2023-02-20] MEDS: lactose-reduced food (Ensure Enlive) - 237ml bottle PO SCH ×2 (08:00→13:00)
[2023-02-20] MEDS: K and/or MAG REPLACEMENT MC SCH ×2 (08:00→20:00)
[2023-02-20] MEDS: diatr meglu/diatrizoate 30ml oral sol.-(3 dose) bottle PO SCH ×2 (08:06→11:49)
[2023-02-20 09:31] LABS: C-REACTIVE PROTEIN 21.55 MG/DL (0.0-0.5)
[2023-02-20 11:14] VITALS: BP 126/74; PULSE 80; RESP 16; TEMP 98.3; O2SAT 95
[2023-02-20] MEDS ORDERED: iohexol 300mg/ml 100ml inj. ONE (11:21)
[2023-02-20] MEDS ORDERED: vancomycin 125mg/5ml ORAL solution 5ml UD oral syringe PO SCH ×4 (14:45→15:00)
[2023-02-20] MEDS: apixaban 5mg tablet PO SCH (15:36)
[2023-02-20 17:17] LABS: C DIFF ANTIGEN NEGATIVE (NEGATIVE); C DIFF SPECIMEN=DIARRHEA? ACCEPTABLE; C DIFFICILE TOXINS A&B NEGATIVE (Neg)
[2023-02-20 18:00] VITALS: BP 133/73; PULSE 104; RESP 18; TEMP 97.9; O2SAT 99
[2023-02-20 20:00] VITALS: RESP 18; O2SAT 95
[2023-02-20 22:00] VITALS: BP 142/73; PULSE 92; RESP 18; TEMP 98.1
[2023-02-21] MEDS: normal saline 1000ml 1,000 ML IV SCH (00:33)
[2023-02-21] MEDS: piperacillin/tazo 3.375gm/50ml 50 ML IV SCH ×2 (00:33→07:24)
[2023-02-21] MEDS: oxyCODONE/APAP 10/325mg tablet PO PRN ×2 (04:19→10:40)
[2023-02-21 06:00] VITALS: BP 116/74; PULSE 96; RESP 16; TEMP 98.9; O2SAT 99
[2023-02-21] MEDS: PHENTERMINE 37.5 MG PO SCH (07:00)
[2023-02-21 07:08] LABS: BASOPHILS % (AUTO) 0.4 % (0-1); EOSINOPHILS # (AUTO) 0.3 X10'3 (0-0.9); EOSINOPHILS % (AUTO) 2.7 % (0-6); HEMATOCRIT 32.5 % (35.0-45.0); HEMOGLOBIN 10.8 g/dl (12.0-16.0); LYMPHOCYTES # (AUTO) 1.2 X10'3 (1.1-4.8); LYMPHOCYTES % (AUTO) 10.9 % (21-51); MEAN CORPUSCULAR HEMOGLOBIN 30.6 PG (27.0-31.0); MEAN CORPUSCULAR HGB CONC 33.4 g/dL (33.0-36.5); MEAN CORPUSCULAR VOLUME 91.6 FL (78-98); MONOCYTES # (AUTO) 1.6 X10'3 (0-0.9); MONOCYTES % (AUTO) 14.3 % (2-12); NEUTROPHILS % (AUTO) 71.7 % (42-75); PLATELET COUNT 265 X10'3 (140-440); RED BLOOD COUNT 3.55 X10'6 (4.20-5.60); RED CELL DISTRIBUTION WIDTH 14.5 % (11.5-14.5); WHITE BLOOD COUNT 11.1 X10'3 (4.5-11.0)
[2023-02-21] MEDS: morphine 4 MG/ML inj SYRINge IV PRN ×2 (07:18→12:52)
[2023-02-21] MEDS: apixaban 5mg tablet PO SCH (07:20)
[2023-02-21] MEDS: magnesium hydroxide 30ml (MOM) UD suspension PO SCH (07:22)
[2023-02-21] MEDS: metoprolol tartrate 12.5mg (1/2 tablet) PO SCH (07:22)
[2023-02-21 07:25] LABS: ALANINE AMINOTRANSFERASE 30 U/L (12-78); ALBUMIN 2.3 G/DL (3.4-5.0); ALBUMIN/GLOBULIN RATIO 0.5 (1.1-1.5); ALKALINE PHOSPHATASE 107 IU/L (46-116); ANION GAP 7 (8-16); ASPARTATE AMINO TRANSFERASE 20 U/L (10-37); BILIRUBIN,TOTAL 0.4 MG/DL (0.1-1.0); BLOOD UREA NITROGEN 9 MG/DL (7-18); BUN/CREATININE RATIO 10.7 (10.0-20.0); CALCIUM 8.4 MG/DL (8.5-10.1); CHLORIDE 97 MMOL/L (99-107); CREATININE 0.84 MG/DL (0.40-0.90); GLUCOSE 107 MG/DL (70-104); MAGNESIUM 1.9 MG/DL (1.5-2.4); PHOSPHORUS 2.5 MG/DL (2.3-4.5); POTASSIUM 3.9 MMOL/L (3.5-5.1); SODIUM 131 MMOL/L (135-145); TOTAL CARBON DIOXIDE 26.7 MMOL/L (24-32); TOTAL PROTEIN 6.5 G/DL (6.4-8.2); eCRCL 63 ML/MIN; eGFR 83 ML/MIN
[2023-02-21] MEDS: K and/or MAG REPLACEMENT MC SCH (07:32)
[2023-02-21] MEDS ORDERED: HYDROchlorothiazide 12.5mg capsule PO SCH (08:00)
[2023-02-21 10:00] VITALS: BP 127/75; PULSE 96; RESP 15; TEMP 97.3; O2SAT 98
[2023-02-21] MEDS ORDERED: CIPR-259 PO (15:56)
[2023-02-21] MEDS ORDERED: METR-159 PO (15:56)
[2023-02-21] MEDS ORDERED: APIX5TAB3 PO (15:59)
[2023-02-21] MEDS ORDERED: HYDR25TA5 PO (15:59)
[2023-02-21] MEDS ORDERED: lactose-reduced food (Ensure Enlive) - 237ml bottle PO SCH (20:00)
== END 2023-02-21 13:27 | disposition home or self-care (01) | DRG 330 ==
LOC: PAS IN 09:37 → ORTHO 4S 18:04
PROVIDERS: ADMIT Surgery; ATTEND Surgery
PROC: 0T9B80Z Drainage of Bladder with Drainage Device, Via Natural or Artificial Opening Endoscopic (ICD-10-PCS; 2023-02-09)
PROC: 0DTN0ZZ Resection of Sigmoid Colon, Open Approach (ICD-10-PCS; principal; 2023-02-09 12:10)
PROC: 0DN80ZZ Release Small Intestine, Open Approach (ICD-10-PCS; 2023-02-09 12:10)
DX: C18.7 Malignant neoplasm of sigmoid colon (principal); K56.50 Intestinal adhesions [bands], unspecified as to partial versus complete obstruction; E66.9 Obesity, unspecified; M10.9 Gout, unspecified; K57.90 Diverticulosis of intestine, part unspecified, without perforation or abscess without bleeding; F17.210 Nicotine dependence, cigarettes, uncomplicated; Z86.19 Personal history of other infectious and parasitic diseases; Z83.3 Family history of diabetes mellitus; Z82.49 Family history of ischemic heart disease and other diseases of the circulatory system; Z80.3 Family history of malignant neoplasm of breast; Z68.35 Body mass index [BMI] 35.0-35.9, adult; Z79.899 Other long term (current) drug therapy
CPT/HCPCS: Z7506; Z7508; 36415; 71275; 74018; 74176; 74177; 80048; 80053; 81001; 82948; 83605; 83735; 83880; 84100; 84132; 84145; 85007; 85025; 85027; 85379; 85651; 86140; 86885; 86900; 86901; 87040; 87081; 87088; 87324; 87449; 93005; 93970; A4215; A4338; A4615; A4618; A5200; A6258; A6449; A7000; C1758; C1769; G0378; J0131; J0171; J0360; J0694; J1100; J1170; J1200; J2175; J2250; J2270; J2405; J2543; J2704; J2765; J2930; J3010; J3490; J7030; J7120; Q9963; Q9967